=== PATIENT | female | born 1955 | race Caucasian/White ===

== ENCOUNTER 2022-07-29 14:56 | Inpatient (IN) | payer OTHER ==
--- OUTSIDE RECORDS SUMMARY | 2022-07-29 15:01 | XMS REPORT | Continuity of Care Document ---
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 MOUTH [place] 00 :00 DAILY Medical Branch MYRBETRIQ 2019-0 2021- No [id number] TAKE 1 Univers 50 mg 9-21 -22 TABLET BY ity of tablet 00:00: 00:00 MOUTH [place] 00 :00 DAILY Medical Branch Immunizations Ordered Filled Immunization Date Status Comments [facility] e Immunization Name Name Pneumococcal 20 2022-03-21 Completed Universit y of Conjugate, PCV20 00:00:00 [facility] dical (Prevnar 20) Branch Pneumococcal 20 2022-03-21 Completed Universit y of Conjugate, PCV20 00:00:00 [facility] dical (Prevnar 20) Branch Pneumococcal 20 2022-03-21 Completed Universit y of Conjugate, PCV20 00:00:00 [facility] dical (Prevnar 20) Branch Pneumococcal 20 2022-03-21 Completed Universit y of Conjugate, PCV20 00:00:00 [facility] dical (Prevnar 20) Branch Pneumococcal 20 2022-03-21 Completed Universit y of Conjugate, PCV20 00:00:00 [facility] dical (Prevnar 20) Branch Pneumococcal 20 2022-03-21 Completed Universit y of Conjugate, PCV20 00:00:00 [facility] dical (Prevnar 20) Branch Pneumococcal 20 2022-03-21 Completed Universit y of Conjugate, PCV20 00:00:00 [facility] dical (Prevnar 20) Branch Pneumococcal 20 2022-03-21 Completed Universit y of Conjugate, PCV20 00:00:00 [facility] dical (Prevnar 20) Branch Pneumococcal 20 2022-03-21 Completed Universit y of Conjugate, PCV20 00:00:00 [facility] dical (Prevnar 20) Branch Moderna COVID-19 Moderna COVID-19 2020-12-30 Completed Vaccine Vaccine 00:00:00 Moderna COVID-19 Moderna COVID-19 2020-11-11 Completed Vaccine Vaccine 00:00:00 Influenza High Dose 2020-03-23 Completed Unive rsity of Quad 00:00:00 [facility] Influenza High Dose 2020-03-23 Completed Unive rsity of Quad 00:00:00 [facility] Influenza High Dose 2020-03-23 Completed Unive rsity of Quad 00:00:00 [facility] Influenza High Dose 2020-03-23 Completed Unive rsity of Quad 00:00:00 [facility] Influenza High Dose 2020-03-23 Completed Unive rsity of Quad 00:00:00 [facility] Influenza High Dose 2020-03-23 Completed Unive rsity of Quad 00:00:00 [facility] Influenza High Dose 2020-03-23 Completed Unive rsity of Quad 00:00:00 [facility] Influenza High Dose 2020-03-23 Completed Unive rsity of Quad 00:00:00 [facility] Influenza High Dose 2020-03-23 Completed Unive rsity of Quad 00:00:00 [facility] Influenza High Dose 2020-03-23 Completed Unive rsity of Quad 00:00:00 [facility] Influenza High Dose 2020-03-23 Completed Unive rsity of Quad 00:00:00 [facility] Influenza High Dose 2020-03-23 Completed Unive rsity of Quad 00:00:00 [facility] Influenza High Dose 2020-03-23 Completed Unive rsity of Quad 00:00:00 [facility] Pneumococcal 13 2019-04-16 Completed Universit y of Conjugate, PCV13 00:00:00 [facility] dical (Prevnar 13) Branch Influenza Virus 2019-04-16 Completed Universit y of Vaccine Quad .5 mL 00:00:00 [facility] 6+ MO Branch Pneumococcal 13 2019-04-16 Completed Universit y of Conjugate, PCV13 00:00:00 [facility] dical (Prevnar 13) Branch Influenza Virus 2019-04-16 Completed Universit y of Vaccine Quad .5 mL 00:00:00 [facility] IM 6+ MO Branch Pneumococcal 13 2019-04-16 Completed Universit y of Conjugate, PCV13 00:00:00 [facility] dical (Prevnar 13) Branch Influenza Virus 2019-04-16 Completed Universit y of Vaccine Quad .5 mL 00:00:00 [facility] 6+ MO Branch Pneumococcal 13 2019-04-16 Completed Universit y of Conjugate, PCV13 00:00:00 [place] Me dical (Prevnar 13) Branch Influenza Virus 2019-04-16 Completed Universit y of Vaccine Quad .5 mL 00:00:00 [place] [facility] IM 6+ MO Branch Pneumococcal 13 2019-04-16 Completed Universit y of Conjugate, PCV13 00:00:00 [place] [facility] dical (Prevnar 13) Branch Influenza Virus 2019-04-16 Completed Universit y of Vaccine Quad .5 mL 00:00:00 [place] [facility] IM 6+ MO Branch Pneumococcal 13 2019-04-16 Completed Universit y of Conjugate, PCV13 00:00:00 [facility] dical (Prevnar 13) Branch Influenza Virus 2019-04-16 Completed Universit y of Vaccine Quad .5 mL 00:00:00 [place] [facility] IM 6+ MO Branch Pneumococcal 13 2019-04-16 Completed Universit y of Conjugate, PCV13 00:00:00 [facility] dical (Prevnar 13) Branch Influenza Virus 2019-04-16 Completed Universit y of Vaccine Quad .5 mL 00:00:00 [place] [facility] IM 6+ MO Branch Pneumococcal 13 2019-04-16 Completed Universit y of Conjugate, PCV13 00:00:00 [facility] dical (Prevnar 13) Branch Influenza Virus 2019-04-16 Completed Universit y of Vaccine Quad .5 mL 00:00:00 [place] [facility] IM 6+ MO Branch Pneumococcal 13 2019-04-16 Completed Universit y of Conjugate, PCV13 00:00:00 [facility] dical (Prevnar 13) Branch Influenza Virus 2019-04-16 Completed Universit y of Vaccine Quad .5 mL 00:00:00 [place] [facility] IM 6+ MO Branch Pneumococcal 13 2019-04-16 Completed Universit y of Conjugate, PCV13 00:00:00 [facility] dical (Prevnar 13) Branch Influenza Virus 2019-04-16 Completed Universit y of Vaccine Quad .5 mL 00:00:00 [place] [facility] IM 6+ MO Branch Pneumococcal 13 2019-04-16 Completed Universit y of Conjugate, PCV13 00:00:00 [facility] dical (Prevnar 13) Branch Influenza Virus 2019-04-16 Completed Universit y of Vaccine Quad .5 mL 00:00:00 [place] [facility] IM 6+ MO Branch Pneumococcal 13 2019-04-16 Completed Universit y of Conjugate, PCV13 00:00:00 [facility] dical (Prevnar 13) Branch Influenza Virus 2019-04-16 Completed Universit y of Vaccine Quad .5 mL 00:00:00 [facility] 6+ MO Branch Pneumococcal 13 2019-04-16 Completed Universit y of Conjugate, PCV13 00:00:00 [facility] dical (Prevnar 13) Branch Influenza Virus 2019-04-16 Completed Universit y of Vaccine Quad .5 mL 00:00:00 [facility] 6+ MO Branch Influenza Virus 2012-04-17 Completed Universit y of Vaccine 00:00:00 [facility] Influenza Virus 2012-04-17 Completed Universit y of Vaccine 00:00:00 [facility] Influenza Virus 2012-04-17 Completed Universit y of Vaccine 00:00:00 [facility] Influenza Virus 2012-04-17 Completed Universit y of Vaccine 00:00:00 [facility] Influenza Virus 2012-04-17 Completed Universit y of Vaccine 00:00:00 [facility] Influenza Virus 2012-04-17 Completed Universit y of Vaccine 00:00:00 [facility] Influenza Virus 2012-04-17 Completed Universit y of Vaccine 00:00:00 [facility] Influenza Virus 2012-04-17 Completed Universit y of Vaccine 00:00:00 [facility] Influenza Virus 2012-04-17 Completed Universit y of Vaccine 00:00:00 [facility] Influenza Virus 2012-04-17 Completed Universit y of Vaccine 00:00:00 [facility] Influenza Virus 2012-04-17 Completed Universit y of Vaccine 00:00:00 [facility] Influenza Virus 2012-04-17 Completed Universit y of Vaccine 00:00:00 [facility] Influenza Virus 2012-04-17 Completed Universit y of Vaccine 00:00:00 [facility] TDAP 2012-02-11 Completed University of 00:00:00 [facility] TDAP 2012-02-11 Completed University of 00:00:00 [facility] TDAP 2012-02-11 Completed University of 00:00:00 [facility] TDAP 2012-02-11 Completed University of 00:00:00 [facility] TDAP 2012-02-11 Completed University of 00:00:00 [facility] TDAP 2012-02-11 Completed University of 00:00:00 [facility] TDAP 2012-02-11 Completed University of 00:00:00 [facility] TDAP 2012-02-11 Completed University of 00:00:00 [facility] TDAP 2012-02-11 Completed University of 00:00:00 [facility] TDAP 2012-02-11 Completed University of 00:00:00 [facility] TDAP 2012-02-11 Completed University of 00:00:00 [facility] TDAP 2012-02-11 Completed University of 00:00:00 [facility] TDAP 2012-02-11 Completed University of 00:00:00 [facility] Vital Signs Vital Name Observation Time Observation Value Comments Source Systolic blood 2022-03-21 18:38:00 125 mm[Hg] Univer sity of pressure [facility] Diastolic blood 2022-03-21 18:38:00 81 mm[Hg] Unive rsity [facility] [place] Heart rate 2022-03-21 18:38:00 77 /min [facility] Body temperature 2022-03-21 18:38:00 36.5 Kelsey [facility] Respiratory rate 2022-03-21 18:38:00 18 /min [facility] height 2022-03-21 18:38:00 177.8 cm [facility] Body weight 2022-03-21 18:38:00 77.61 kg [facility] BMI 2022-03-21 18:38:00 24.55 kg/m2 [facility] Oxygen saturation in 2022-03-21 18:38:00 95 /min [facility] Arterial blood by [facility] Pulse oximetry Branch Procedures Procedure Date / Time Performing Clinician Source Performed PNEUMOCOCCAL 20 2022-03-21 19:07:33 Nicolas Branch [place] CONJUGATE (PREVNAR 20) [facility] ranch VACCINE ASSIGNMENT OF BENEFITS 2022-03-21 18:31:24 Doctor Unassigned, No [facility] EXTERNAL FIT DNA 2019-05-07 15:15:00 [facility] Start End Encounter Admission Attending Care Care Encounter Source Date/Time Date/Time Type Type Clinicians Facility Department ID 2022-06-05 2022-06-05 Outpatient Tg BRANCH [facility] [id number] Univers 00:00:00 00:00:[address] [facility] 2022-05-22 2022-05-22 Refill Jose Carlos, [facility] 1.2.840.114 [id number] Univers 00:00:00 00:00:00 Meryann SOUTH 350.1.13.10 it y of [facility] [place] [id number] [address] 2022-05-20 2022-05-20 Refill Jose Carlos, [facility] 1.2.840.114 [id number] Univers 00:00:00 00:00:00 Meryann [place]TH 350.1.13.10 it y of [facility] [place] [id number] [address] 2022-04-30 2022-04-30 Refill Jose Carlos, [facility] 1.2.840.114 [id number] Univers 00:00:00 00:00:00 Meryann LEAGUE 350.1.13.10 it y of [facility] [place] [phone] [place] dical AND [address] [place] [address] [facility] 2022-04-04 2022-04-04 Telephone [facility] [id number] Univers 00:00:00 00:00:00 [facility] 350.1.13.10 it y of [facility] [place] [id number] [address] 2022-04-02 2022-04-02 Refill [facility], [facility] 1.2.840.114 [id number] Univers 00:00:00 00:00:00 Mercuongn SOUTH 350.1.13.10 it y of [facility] [place] [id number] [address] 2022-03-22 2022-03-22 Order Booker Draw, Clc-Bls Lab [facility] 1.2.8 40.114 [id number] Univers 12:30:00 12:45:00 Visit Nicolas Branch [facility] 350.1 .13.10 ity of [place] 4.2.7.2.686 [place] HIGH [id number] [facility] [address] OFFICE BUILDING 2022-03-22 2022-03-22 Outpatient R JOSE CARLOS, [facility] [id number] Univers 12:30:00 12:30:00 NORMAN ity [facility] [place] 2022-03-21 2022-03-21 Outpatient R JOSE CARLOS, [facility] [id number] Univers 13:40:00 14:26:26 MERYANN ity [facility] [place] 2022-03-21 2022-03-21 Office Jose Carlos, [facility] 1.2.840.114 [id number] Univers 13:40:00 14:26:26 Visit Nicolas FORMAN 350.1.13.10 it y of [facility] [place] [id number] [facility] [address] 2022-03-21 2022-03-21 Orders Doctor DES 1.2.840.114 [id number] Univers 00:00:00 00:00:00 Only Unassigned, TERI 350.1.13.10 ity of [place] [facility] 4.2.7.2.686 Randy as [id number] [facility] 009 Branch 2022-03-18 2022-03-18 Outpatient R JOSE CARLOS, [facility] [id number] Univers 10:20:00 10:20:00 NICOLAS [facility] 2022-03-11 2022-03-11 [facility] 1.2.840.114 [id number] Univers 00:00:00 00:00:00 Nicolas FORMAN 350.1.13.10 it y of [facility] [place] [id number] [facility] [address] 2022-03-08 2022-03-08 [facility] 1.2.840.114 [id number] Univers 00:00:00 00:00:00 Nicolas MIMS 350.1.13.10 it y of [facility] [place] [id number] [facility] AND [address] [place] [address] [facility] 2022-01-24 2022-01-24 Refill Jose Carlos, [facility] 1.2.840.114 [id number] Univers 00:00:00 00:00:00 Meryann LEAGUE 350.1.13.10 it y of [facility] [place] [id number] Me dical AND [address] [facility] E CLINIC 2021-12-11 2021-12-11 Refill Jose Carlos, [facility] 1.2.840.114 [id number] Univers 00:00:00 00:00:00 Meryann LEAGUE 350.1.13.10 it y of [facility] [place].2.[place] [id number] Me dical AND [address] [facility] E CLINIC 2021-10-31 2021-10-31 [facility] 1.2.840.114 [id number] Univers 00:00:00 00:00:00 Meryann LEAGUE 350.1.13.10 it y of [facility] [place] [id number] Me dical AND [address] [facility] E CLINIC 2021-10-29 2021-10-29 Outpatient R [facility] [id number] Univers 13:00:00 13:00:[address] [facility] 2021-09-28 2021-09-28 Patient [facility] 1.2.840.114 [id number] Univers 00:00:00 00:00:00 Secure Msg Nicolas FORMAN 350.1.13.10 ity of [facility] [place] [id number] [address] 2021-09-21 2021-09-21 Outpatient [facility] [id number] Univers 13:40:00 14:49:01 NICOLAS ity [facility] [place] 2021-09-21 2021-09-21 Office [facility] 1.2.840.114 [id number] Univers 13:40:00 14:49:01 Visit Nicolas FORMAN 350.1.13.10 it y of [facility] [place].2.[place] [id number] [address] 2021-09-21 2021-09-21 Outpatient [facility] [id number] Univers 13:40:00 14:49:[address] [facility] 2021-09-11 2021-09-11 Refill [facility] 1.2.840.114 [id number] Univers 00:00:00 00:00:00 Meryann LEAGUE 350.1.13.10 it y of [facility] [place] [id number] [place] dicms AND [address] [facility] E CLINIC 2021-08-07 2021-08-07 Refill [facility] 1.2.840.114 [id number] Univers 00:00:00 00:00:00 Meryann LEAGUE 350.1.13.10 it y of [facility] [place] [id number] [facility] AND [address] [facility] E CLINIC 2021-08-06 2021-08-06 [facility]ill [facility] 1.2.840.114 [id number] Univers 00:00:00 00:00:00 Meryann LEAGUE 350.1.13.10 it y of [facility] [place].2.[place] [id number] [facility] AND [address] [facility] E CLINIC 2021-07-21 2021-07-21 Refill [facility] 1.2.840.114 [id number] Univers 00:00:00 00:00:00 Meryann SOUTH 350.1.13.10 it y of [facility] [place].2.[place] [phone] [address] 2021-07-10 2021-07-10 Refill [facility] 1.2.840.114 [id number] Univers 00:00:00 00:00:00 Meryann SOUTH 350.1.13.10 it y of [facility] [place].2.[place] [id number] [address] 2021-05-25 2021-05-25 Refill [facility] 1.2.840.114 [id number] Univers 00:00:00 00:00:00 Meryann LEAGUE 350.1.13.10 it y of [facility] 4[place]7.2.[place] [id number] Me dical AND [address] [facility] 2021-05-16 2021-05-16 Refill [facility] 1.2.840.114 [id number] Univers 00:00:00 00:00:00 Meryann LEAGUE 350.1.13.10 it y of [facility] [place]7.2.[place] [id number] [place] dical AND [address] [facility] E CLINIC 2021-05-07 2021-05-07 Refill [facility] 1.2.840.114 [id number] Univers 00:00:00 00:00:00 Meryann LEAGUE 350.1.13.10 it y of [facility] 4[place].7.2.[place] [id number] [place] dicms AND [address] [facility] E CLINIC 2021-05-06 2021-05-06 [facility] 1.2.840.114 [id number] Univers 00:00:00 00:00:00 Meryann SOUTH 350.1.13.10 it y of [facility] [place].7.2.[place] [id number] [address] 2021-05-05 2021-05-05 Refill [facility] 1.2.840.114 [id number] Univers 00:00:00 00:00:00 Meryann LEAGUE 350.1.13.10 it y of [facility] 4[place].7.2.[place] [id number] [place] dicms AND [address] [place] [address] E CLINIC 2021-04-27 2021-04-27 Radha LU [facility] [id number] Univers 09:30:00 09:30:00 ALFONSO salas [facility] [place] 2021-04-25 2021-04-25 Letter DES Castillo 1.2.840.114 [id number] Univers 00:00:00 00:00:00 (Out) Debi WILLIAMSON 350.1.13.10 it y of HOSPITAL 4.2.7.2.686 Randy as [id number] [facility] 019 Branch 2021-04-24 2021-04-24 Laboratory Only, Web Test [facility] 1.2.840. 114 [id number] Univers 16:29:43 16:44:43 Only [facility] 350.1 .13.10 ity of Specialty [place].2.[place] Care - [id number] [facility] [address] 2021-04-24 2021-04-24 Outpatient R [facility] [id number] Univers 16:30:00 16:30:00 [facility] 2021-04-24 2021-04-24 Outpatient R [facility] [id number] Univers 14:00:00 14:00:00 [facility] 2021-04-10 2021-04-10 Telephone [facility] [id number] Univers 00:00:00 00:00:00 [facility] 350.1.13.10 it y of [facility] [place].7.2.[place] [id number] [address] 2021-04-03 2021-04-03 Refill [facility] 1.2.840.114 [id number] Univers 00:00:00 00:00:00 [facility] 350.1.13.10 it y of [facility] 4.2.7.2.[place] [id number] [address] 2021-03-15 2021-03-15 Letter Testing, UNIVERSIT 1.2.840.114 [id number] Univers 00:00:00 00:00:00 (Out) [facility] HEALTH 350.1.13.10 i ty of Pulmonary CLINICS [place].7.2.[place] Function [id number] Med ical 083 Branch 2021-03-12 2021-03-12 Office [facility] 1.2.840.114 [id number] Univers 14:41:07 15:43:43 Visit Nicolas FORMAN 350.1.13.10 it y of [facility] 4.2.7.2.[place] [id number] [facility] 314 [address] 2021-03-12 2021-03-12 Outpatient R [facility] [id number] Univers 14:40:00 14:40:[address] [facility] 2021-03-12 2021-03-12 Orders Doctor DES 1.2.840.114 [id number] Univers 00:00:00 00:00:00 Only Unassigned, TERI 350.1.13.10 ity of [place] [facility] 4.2.7.2.686 Randy as [phone] [facility] 009 Branch 2021-02-24 2021-02-24 Refill [facility] 1.2.840.114 [id number] Univers 00:00:00 00:00:00 Nicolas MIMS 350.1.13.10 it y of [facility] 4[place]2.7.2.[place] [id number] Me dicms AND [address] [facility] E CLINIC 2021-02-24 2021-02-24 Refill [facility] 1.2.840.114 [id number] Univers 00:00:00 00:00:00 Meryann LEAGUE 350.1.13.10 it y of [facility] 4.2.7.2.[place] [id number] Me dical AND [address] [facility] E CLINIC 2021-02-01 2021-02-01 Refill [facility] 1.2.840.114 [id number] Univers 00:00:00 00:00:00 Meryann LEAGUE 350.1.13.10 it y of [facility] 4.2.7.2.[place] [id number] Me dical AND 313 [address] [facility] 2021-01-31 2021-01-31 Refill [facility] 1.2.840.114 [id number] Univers 00:00:00 00:00:00 Meryann LEAGUE 350.1.13.10 it y of [facility] 4[place]2.7.2.[place] [id number] Me dical AND [address] [facility] E CLINIC 2021-01-02 2021-01-02 Refill [facility] 1.2.840.114 [id number] Univers 00:00:00 00:00:00 Meryann LEAGUE 350.1.13.10 it y of [facility] 4[place]2.7.2.[place] [id number] Me dical AND [address] [facility] E CLINIC 2020-12-30 2020-12-30 Outpatient GCCOVIDV GCCOVIDV [id number] GCCOVID 00:00:00 00:00:00 V 2020-12-26 2020-12-26 Outpatient SHAHRZAD ESPARZA [facility] [id number] Univers 08:30:00 08:30:[address] [facility] 2020-11-23 2020-11-23 [facility]ill [facility] 1.2.840.114 [id number] Univers 00:00:00 00:00:00 Meryann LEAGUE 350.1.13.10 it y of [facility] 4.2.7.2.[place] [id number] [place] dicms AND [address] [place] [address] E CLINIC 2020-11-11 2020-11-11 Outpatient GCCOVIDV GCCOVIDV [id number] GCCOVID 00:00:00 00:00:00 V 2020-10-31 2020-10-31 Refill [facility] 1.2.840.114 [id number] Univers 00:00:00 00:00:00 Meryann LEAGUE 350.1.13.10 it y of [facility] 4.2.7.2.[place] [id number] Me dical AND [address] [place] [address] E CLINIC 2020-10-06 2020-10-06 [facility] 1.2.840.114 [id number] Univers 00:00:00 00:00:00 Meryann LEAGUE 350.1.13.10 it y of [facility] [place] [phone] Me dical AND [address] [place] [address] [facility] 2020-10-04 2020-10-04 Orders Doctor DES 1.2.840.114 [id number] Univers 00:00:00 00:00:00 Only Unassigned, TERI 350.1.13.10 ity of [place] [facility] 4.2.7.2.686 Randy as [phone] [place] [address] [place] 2020-10-03 2020-10-03 Telephone [facility] 1.2.252.564 [id number] Univers 00:00:00 00:00:00 Meryann LEAGUE 350.1.13.10 it y of [facility] [place] [phone] Me dical AND [address] [place] [address] [facility] 2020-09-30 2020-09-30 Refill [facility] 1.2.840.114 [id number] 87 Univers 00:00:00 00:00:00 Meryann LEAGUE 350.1.13.10 it y of [facility] [place]2.[place] 188.3217672 Me dical AND [address] [place] [address] [facility] 2020-09-28 2020-09-28 Telephone [facility] 1.2.975.919 [id number] 5174 Univers 00:00:00 00:00:00 Meryann LEAGUE 350.1.13.10 it y of [facility] [place].2.[place] 135.0540180 Me dical AND [address] [place] [address] [facility] 2020-09-26 2020-09-26 Office [facility] 1.2.840.114 [id number] 03 Univers 14:31:04 14:51:04 Visit Meryann LEAGUE 350.1.13.10 it y of [facility] [place].2.[place] 278.0428308 Me dical AND [address] [place] [address] E CLINIC 2020-09-26 2020-09-26 Outpatient R JOSE CARLOS [facility] [id number] Univers 14:20:00 14:20:[address] [facility] 2020-09-26 2020-09-26 Orders Doctor NUNES 1.2.840.114 [id number] Univers 00:00:00 00:00:00 Only Unassigned, TERI 350.1.13.10 ity of [facility] 4.2.7.2.686 Randy as [phone] [address] 2020-09-21 2020-09-21 Telephone [facility] 1.2.169.361 [id number] Univers 00:00:00 00:00:00 Nicolas MIMS 350.1.13.10 it y of [facility] [place].2.[place] [phone] [place] dicms AND [address] [place] [address] E CLINIC 2020-09-18 2020-09-18 Office [facility] 1.2.840.114 [id number] 11 Univers 13:24:37 13:44:37 Visit Nicolas DHEERAJMARY BETH 350.1.13.10 it y of [facility] 4[place].7.2.[place] [phone] [facility] AND [address] [place] [address] E CLINIC 2020-09-18 2020-09-18 Outpatient Tg BRANCH [facility] [id number] Univers 13:20:00 13:20:00 NICOLAS salas [facility] 2020-09-18 2020-09-18 Outpatient Tg ETIENNE [facility] [id number] Univers 13:00:00 13:00:00 CAM salas [facility] 2020-09-18 2020-09-18 Orders DES [place] 1.2.840.114 [id number] Univers 00:00:00 00:00:00 Only Nicolas WILLIAMSON 350.1.13.10 it y of [facility] 4.2.7.2.686 [place] [phone] [address] 2020-09-11 2020-09-11 Outpatient Tg BRANCH [facility] [id number] Univers 16:00:00 16:00:[address] of [facility] 2020-09-06 2020-09-06 Refill [facility] 1.2.840.114 [id number] Univers 00:00:00 00:00:00 Meryann LEAGUE 350.1.13.10 it y of [facility] [place].2.[place] [id number] Me dical AND [address] [facility] 2020-09-04 2020-09-04 Patient [facility] 1.2.840.114 [id number] Univers 00:00:00 00:00:00 Outreach Tio KEN 350.1.13.10 i ty of [facility] 4.2.7.2.686 Osmar ARRIAGA [phone] Me dic[address] 2020-09-01 2020-09-01 Refill [facility] 1.2.840.114 [id number] 84 Univers 00:00:00 00:00:00 Meryann LEAGUE 350.1.13.10 it y of [facility] 4[place]7.2.[place] [id number] Me dical AND [address] [facility] E CLINIC 2020-07-12 2020-07-12 Telephone [facility] 1.2.756.846 [id number] Univers 00:00:00 00:00:00 Meryann LEAGUE 350.1.13.10 it y of [facility] [place].7.2.[place] [phone] Me dical AND [address] [facility] E CLINIC 2020-07-12 2020-07-12 Refill [facility] 1.2.840.114 [id number] Univers 00:00:00 00:00:00 Meryann LEAGUE 350.1.13.10 it y of [facility] 4[place].7.2.[place] 576.6606110 Me dical AND [address] [facility] E CLINIC 2020-07-07 2020-07-07 Refill [facility] 1.2.840.114 [id number] 86 Univers 00:00:00 00:00:00 Meryann LEAGUE 350.1.13.10 it y of [facility] 4[place]2.7.2.[place] 621.5757386 Me dical AND [address] [place] [address] E CLINIC 2020-06-18 2020-06-18 Refill [facility] 1.2.840.114 [id number] 73 Univers 00:00:00 00:00:00 Meryann LEAGUE 350.1.13.10 it y of [facility] 4[place]2.7.2.[place] 430.7078458 Me dical AND [address] [place] [address] E CLINIC 2020-06-16 2020-06-16 Refill [facility] 1.2.840.114 [id number] 00 Univers 00:00:00 00:00:00 Meryann LEAGUE 350.1.13.10 it y of [facility] 4[place]2.7.2.[place] 372.1510078 Me dical AND [address] [place] [address] E CLINIC 2020-06-05 2020-06-05 Refill [facility] 1.2.840.114 [id number] 84 Univers 00:00:00 00:00:00 Meryann LEAGUE 350.1.13.10 it y of [facility] 4.2.7.2.[place] 660.1685511 Me dical AND [address] [place] [address] E CLINIC 2020-04-04 2020-04-04 Refill [facility] 1.2.840.114 [id number] 03 Univers 00:00:00 00:00:00 Meryann LEAGUE 350.1.13.10 it y of [facility] 4.2.7.2.[place] [phone] Me dical AND [address] [place] [address] [facility] 2020-03-30 2020-03-30 Outpatient R [facility] [id number] Univers 10:40:00 10:40:[address] [facility] 2020-03-23 2020-03-23 Office [facility] 1.2.840.114 [id number] Univers 12:45:08 13:05:08 Visit Mercuongn LEAGUE 350.1.13.10 it y of [facility] 4.2.7.2.[place] 128.7100239 Me dical AND [address] [facility] E CLINIC 2020-03-23 2020-03-23 Outpatient R JOSE CARLOS [facility] [id number] Univers 13:00:00 13:00:[address] of [facility] 2020-03-23 2020-03-23 Refill [facility] 1.2.840.114 [id number] Univers 00:00:00 00:00:00 Meryann LEAGUE 350.1.13.10 it y of [facility] 4[place]2.7.2.[place] 205.6224827 Me dical AND [address] [facility] E CLINIC 2020-03-13 2020-03-13 Refill [facility] 1.2.840.114 [id number] Univers 00:00:00 00:00:00 Meryann LEAGUE 350.1.13.10 it y of [facility] 4.2.7.2.[place] [phone] Me dical AND [address] [facility] E CLINIC 2020-03-08 2020-03-08 Refill [facility] 1.2.840.114 [id number] 35 Univers 00:00:00 00:00:00 Meryann LEAGUE 350.1.13.10 it y of [facility] 4[place]2.7.2.[place] 496.3999537 Me dical AND [address] [place] [address] E CLINIC 2020-02-28 2020-02-28 [facility] 1.2.840.114 [id number] 54 Univers 00:00:00 00:00:00 Meryann LEAGUE 350.1.13.10 it y of [facility] 4[place]2.7.2.[place] 223.7974913 Me dical AND [address] [place] [address] E CLINIC 2020-02-03 2020-02-03 [facility] 1.2.840.114 [id number] 91 Univers 00:00:00 00:00:00 Meryann LEAGUE 350.1.13.10 it y of [facility] 4.[place].7.2.[place] 533.0690886 Me dical AND [address] [facility] 2020-01-31 2020-01-31 Refill Jose Carlos, [facility] 1.2.840.114 [id number] 18 Univers 00:00:00 00:00:00 Mercuongn LEAGUE 350.1.13.10 it y of [facility] 4[place]2.7.2.[place] 424.7604816 Me dical AND [address] [facility] E CLINIC 2020-01-27 2020-01-27 Refill Jose Carlos, [facility] 1.2.840.114 [id number] 13 Univers 00:00:00 00:00:00 Meryann LEAGUE 350.1.13.10 it y of [facility] 4.2.7.2.[place] 548.2271196 Me dical AND [address] [facility] 2020-01-04 2020-01-04 Refill [place], [facility] 1.2.028.839 [id number] 1835 Univers 00:00:00 00:00:00 Arely Garcia LEAGUE 350.1.13.10 ity of [facility] [place] [id number] Me dical AND [address] [facility] 2019-12-29 2019-12-29 Refill Jose Carlos, [facility] 1.2.840.114 [id number] Univers 00:00:00 00:00:00 Mercuongn LEAGUE 350.1.13.10 it y of [facility] 4[place]2.7.2.[place] 178.5670212 Me dical AND [address] [facility] 2019-12-23 2019-12-23 Refill Jose Carlos, [facility] 1.2.840.114 [id number] 64 Univers 00:00:00 00:00:00 Meryann LEAGUE 350.1.13.10 it y of [facility] 4.2.7.2.[place] 795.7102446 Me dical AND [address] [facility] 2019-12-10 2019-12-10 Refill [place], [facility] 1.2.407.628 [id number] Univers 00:00:00 00:00:00 Arely Garcia LEAGUE 350.1.13.10 ity of [facility] [place] [phone] Me dical AND [address] [facility] E CLINIC 2019-11-13 2019-11-13 Refill Jose Carlos, [facility] 1.2.840.114 [id number] 11 Univers 00:00:00 00:00:00 Meryann LEAGUE 350.1.13.10 it y of [facility] 4[place]2.7.2.[place] 102.5518357 Me dical AND [address] [facility] E CLINIC 2019-11-13 2019-11-13 [facility] 1.2.664.026 [id number] 0224 Univers 00:00:00 00:00:00 Arely Garcia LEAGUE 350.1.13.10 ity of [facility] [place] 177.1616833 Me dical AND [address] [facility] E CLINIC 2019-11-09 2019-11-09 [facility] 1.2.526.366 [id number] 7158 Univers 00:00:00 00:00:00 Arely Garcia LEAGUE 350.1.13.10 ity of [facility] [place] [phone] Me dical AND [address] [place] [address] E CLINIC 2019-10-28 2019-10-28 Outpatient R JOSE CARLOS, [facility] [id number] Univers 13:00:00 13:00:[address] [facility] 2019-10-28 2019-10-28 Refill Jose Carlos, [facility] 1.2.840.114 [id number] Univers 00:00:00 00:00:00 Meryann LEAGUE 350.1.13.10 it y of [facility] 4[place]2.7.2.[place] 099.9951709 Me dical AND [address] [place] [address] E CLINIC 2019-10-16 2019-10-16 Refill Jose Carlos, [facility] 1.2.840.114 [id number] 25 Univers 00:00:00 00:00:00 Meryann LEAGUE 350.1.13.10 it y of [facility] 4.2.7.2.[place] 787.6411023 Me dical AND [address] [place] [address] E CLINIC 2019-10-08 2019-10-08 Telephone [facility] 1.2.668.852 [id number] Univers 00:00:00 00:00:00 Nicolas MIMS 350.1.13.10 it y of [facility] 4.2.7.2.[place] 341.3436572 Me dical AND [address] [place] [address] E CLINIC 2019-09-28 2019-09-28 [facility] [id number] Univers 14:00:00 14:00:00 NICOLAS salas [facility] 2019-09-15 2019-09-24 Office [facility] 1.2.840.114 [id number] Univers 14:57:04 10:15:18 Visit Nicolas MIMS 350.1.13.10 it y of [facility] 4.2.7.2.[place] 169.7814147 Me dicms AND [address] [place] [address] E CLINIC 2019-09-23 2019-09-23 Outpatient R JOSE CARLOS [facility] [id number] Univers 13:20:00 13:20:00 NICOLAS salas [facility] 2019-09-23 2019-09-23 TelemedicTanmay Higgins [facility] 1.2.840.114 [id number] Univers 08:09:08 08:29:08 ne Visit Nicolas [place] [facility] 35 0.1.13.10 ity of [facility] 4.2.7.2.686 [facility] AT [phone] Me dical [address] 2019-09-22 2019-09-22 Telephone [facility] 1.2.267.888 [id number] Univers 00:00:00 00:00:00 Nicolas MIMS 350.1.13.10 it y of [facility] 4[place]2.7.2.[place] 618.4301961 Me dical AND [address] [place] [address] E CLINIC 2019-09-21 2019-09-21 Refill [facility] 1.2.840.114 [id number] Univers 00:00:00 00:00:00 Meryann LEAGUE 350.1.13.10 it y of [facility] 4.2.7.2.[place] 628.3394174 Me dical AND [address] [facility] 2019-09-19 2019-09-19 [facility] 1.2.840.114 [id number] Univers 00:00:00 00:00:00 Meryann LEAGUE 350.1.13.10 it y of [facility] 4.2.7.2.[place] 639.0056835 [place] dical AND [address] [facility] E CLINIC 2019-09-15 2019-09-15 Outpatient R JOSE CARLOS [facility] [id number] Univers 15:00:00 15:00:[address] of [facility] 2019-09-08 2019-09-08 [facility] 1.2.840.114 [id number] Univers 00:00:00 00:00:00 Meryann LEAGUE 350.1.13.10 it y of [facility] 4.2.7.2.[place] 417.8474041 [place] dical AND [address] [facility] E CLINIC 2019-09-07 2019-09-07 RefZenia Tamayo [facility] 1.2.840.114 [id number] Univers 00:00:00 00:00:00 Rachel MULTISPEC 350.1.13.10 ity of [place] 4.2.7.2.686 [facility] 138.5839245 [facility] AND [place] [address] [facility] 2019-09-04 2019-09-04 [facility] 1.2.840.114 [id number] Univers 00:00:00 00:00:00 Meryann LEAGUE 350.1.13.10 it y of [facility] 4.2.7.2.[place] 719.8183023 Me dical AND [address] [facility] 2019-07-20 2019-07-20 Izaiah Barry [facility] 1.2.995.458 [id number] Univers 00:00:00 00:00:00 Arely Garcia LEAGUE 350.1.13.10 ity of [facility] 4.2.7.2.[place] 952.4734935 [place] dical AND [address] [facility] E CLINIC 2019-07-20 2019-07-20 JOIE Rivera 1.2.840.114 [id number] 43 Univers 00:00:00 00:00:00 Nicolas MIMS 350.1.13.10 it y of [facility] 4[place].7.2.[place] 392.6344037 Me dical AND [address] [facility] E CLINIC Results Test Description Test Time Test Comments Results Result Comments Source EXTERNAL FIT DNA 2022-03-21 19:19:00 Test Item Value Reference Range Interpretation Comme nts Lab Interpretation (test code = 82369-3) [facility] [id number] 19:19:00 Test Item Value Reference Range Interpretation Comments Lab Interpretation (test code = Abnormal 36558-2) [facility] C-SPINE W/O [id number] 16:50:00 Name: PATRICIA BECERRA [facility] : 1955 Age/S: 62 / F [address] [place] [address] Unit #: [id number] Loc: [place] [address] Phys: Edison Palmer DO Acct: [id number] Dis Date: Status: REG ER PHONE #: [phone] Exam Date: 07/25/2018 1639 FAX #: [phone] Reason: NECK PAIN EXAMS: CPT CODE: [id number] CT C-SPINE W/O CONT 38707 Procedure: CT Cervical Spine. Clinical Indication: Neckpain post fall from standing. Comparison: None. Technique: Multi-detector CT imaging of the cervical spine is performed. Coronal and sagittal reconstructions were obtained. CT imaging performed at this location utilizes radiation dose optimization techniques which include one or more of the following: -Automated exposure control -Adjustment of the mA and/or kV according to patient size -Use of iterative reconstruction technique CT Radiation Dose DLP 234 mGy-cm FINDINGS: ALIGNMENT AND GENERAL ASSESSMENT: There is normal alignment of the cervical spine. There are no fractures or subluxations. 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 The atlanto-dental alignment appears unremarkable. The posterior elements and spinous processes are unremarkable. The facet joint, spinolaminar and spinous process alignment are normal. There is apparent bony spinal fusion at C5-6. The patient has had previous ACDF from C4 through C7 utilizing an anterior metallic plate and screws. DISK SPACES AND SOFT TISSUES: The prevertebral soft tissues are normal. There is minimal degenerative change at all levels including marginal osteophyte formation and facet joint hypertrophy. No prevertebral soft tissue swelling is identified. VISUALIZED LUNG APICES: There is scarring in the apices. IMPRESSION: 1. No fractures or subluxations of the cervical spine. 2. Postoperative and degenerative change. SL: K56-H PAGE 1 Signed Report (CONTINUED) Name: PATRICIA BECERRA [facility] : 1955 Age/S: 62 / F [address] [place] [address] Unit #: [id number] Loc: [place] [address] Phys: Edison Palmer DO Acct: [id number] Dis Date: Status: REG ER PHONE #: [phone] Exam Date: 07/25/2018 1639 FAX #: [phone] Reason: NECK PAIN EXAMS: CPT CODE: [id number] CT C-SPINE W/O CONT 45941 (Continued) at 1650 Reported and signed by: Armando Romero M.D. CC:Edison Palmer DO Technologist:RT Krista(R) CTDI: DLP: Trnscb Date/Time: 07/25/2018 (165) Rodrigo Orig Print D/T: S: 07/25/2018 (1653) CTDI: DLP: PAGE 2 Signed Report- CT HEAD/BRAIN W/O [id number] 16:47:00 Name: PATRICIA BECERRA [facility] : 1955 Age/S: 62 / F [address] [place] [address] Unit #: [id number] Loc: [place] [address] Phys: Edison Palmer DO Acct: [id number] Dis Date: Status:REG ER PHONE #: [phone] Exam Date: 07/25/2018 1638 FAX #: [phone] Reason: HEADACHE EXAMS:CPT CODE: [id number] CT HEAD/BRAIN W/O CONT 20054 CT head without contrast 07/25/2018 HISTORY: Headache PROCEDURE: Multiple axial images from the skull base to the skull vertex were obtained without contrast. Coronal and sagittal reconstructed images were performed. DLP: 419.7 No prior exams are available for comparison FINDINGS: No acute hemorrhage, midline shift, extra-axial fluid collection, hydrocephalus, or mass lesion is present. No cortical hypodensity to suggest an acute infarct is present. Etienne-white differentiation is within normal limits. The visualized mastoid air cells are clear. Thereis no air-fluid level in the visualized paranasal sinuses. Mild distal internal carotid arterial calcifications are present. IMPRESSION: No acute intracranial abnormality. SL: BM-H at 1647 Reported and signed by: Michael Zhou M.D. CC: Edison Palmer DO Technologist:RT Krista(R) CTDI: DLP: Trnscb Date/Time: 07/25/2018 (1646) [email or web address] Orig Print D/T: S: 07/25/2018 (1640) CTDI: DLP: PAGE 1 Signed Report- XR RIBS UNI 2 V [id number] 16:38:00 FAX: Edison Puri DO [phone] [place]: St: REG Name: PATRICIA BECERRA [facility] : 1955 Age/S:62/F [address] [place] [address] Unit #: [id number] Loc: [place] [address] Phys: Edison Palmer DOAcct: [id number] Dis Date: Status: REG ER PHONE #: [phone] Exam Date: 07/25/2018 1627 FAX #: [phone] Reason: fall right rib tenderness EXAMS: CPT CODE: [id number] XR RIBS UNI 2 [place] [address] Procedure: Right Rib Series. Clinical Indication: Right rib pain post fall. Comparison: None. FINDINGS: The AP and oblique views of the right ribs, 4 views, show no definite rib fractures. The costovertebral junctions are unremarkable. There are no associated pleural effusions or pneumothorax. There areno underlying pulmonary contusions noted. IMPRESSION: 1. Unremarkable exam. SL: K56-H at 6346 Reported and signed by: Armando Romero M.D. CC: Edison Palmer DO Technologist: VENKAT Hillman RT(R); Betty Boyd RT(R) Trnsaint elizabeth edgewood Date/Time/By: 07/25/2018 (1250) : By: DatTDO Orig Print D/T: S: 07/25/2018 (8239) PAGE 1 Signed Report- XR FEMUR MIN 2 VWS [id number] 16:28:00 FAX: Edison uPri DO [phone] [place]: St: REG Name: MARIAMPATRICIA [facility] : 1955 Age/S: 62/F [address] [place] [address] Unit #: [id number] Loc: [place] [address] Phys: Juan Palmerry DOAcct: [id number] Dis Date: Status: REG ER PHONE #: [phone] Exam Date: 07/25/2018 1618 FAX #: Reason: THIGH PAIN EXAMS: CPT CODE: [id number] X[place]EMUR MIN [address] [place] [address] Right knee 2 views Right femur 2 views 07/25/2018 HISTORY: Right knee pain and right femur pain after fall FINDINGS:In the right knee, small joint effusion is present. Demineralization is noted. No acute fracture is present. No aggressive lesion is present. Right lateral plate is noted with multiple stabilization screws. No hardware loosening is identified. In the right femur, no fracture is present. No aggressive lesion is present. Distal right femoral plate and screws are again noted. IMPRESSION: 1. No fracture or dislocation involving right knee. 2. No fracture evolving right femur. 3. Small joint effusion. 4.Previous fracture repair of distal right femur SL: -H at 9048 Reported and signed by: Michael Zhou M.D. CC: Edison Palmer DO Technologist: VENKAT Hillman RT(R); Betty Boyd RT(R) Trnmard Date/Time/By: 07/25/2018(3720) : By: [email or web address] Orig Print D/T: S: 07/25/2018 (4134) PAGE 1 Signed Report- XR KNEE 1 OR 2 V [id number] 16:28:00 FAX: Edison Puri DO [phone] [place]: St: REG Name: MARIAMPATRICIA [facility] : 1955 Age/S:62/F [address] [place] [address] Unit #: [id number] Loc: [place] [address] Phys: Edison Palmer DOAcct: [id number] Dis Date: Status: REG ER PHONE #: [phone] Exam Date: 07/25/2018 1611 FAX #: Reason: KNEE PAIN EXAMS: CPT CODE: [id number] XR KNEE 1 OR 2 [place] [address] Right knee 2 views Right femur 2 views 07/25/2018 HISTORY: Right knee pain and right femur pain after fall FINDINGS: Inthe right knee, small joint effusion is present. Demineralization is noted. No acute fracture is present. No aggressive lesion is present. Right lateral plate is noted with multiple stabilization screws. No hardware loosening is identified. In the right femur, no fracture is present. No aggressive lesion is present. Distal right femoral plate and screws are again noted. IMPRESSION: 1. No fracture or dislocation involving right knee. 2. No fracture evolving right femur. 3. Small joint effusion. 4. Previous fracture repair of distal right femur SL: BM-H at 1628 Reported and signed by: Michael Zhou M.D. CC: Edison Palmer DO Technologist: VENKAT Hillman RT(R); Betty Boyd RT(R) Trnmard Date/Time/By: 07/25/2018 (8806) : By: [email or web address] Orig Print D/T: S: 07/25/2018 (4985) PAGE 1 Signed Report
[2022-07-29] MEDS ORDERED: NA CHLORIDE 0.9% 1,000 ML ONE (16:40)
[2022-07-29 16:52] LABS: Absolute Lymphocytes (CBC) 1.6 K/uL (0.7-4.9); Lymphocytes % 22.4 % (15.3-44.8); MPV 7.4 fL (7.6-11.3); RBC Red Blood Cell Count 2.38 M/uL (3.86-4.86)
[2022-07-29 17:10] LABS: Albumin 3.6 g/dL (3.4-5.0); Bilirubin Total 0.3 mg/dL (0.2-1.0); Troponin High Sensitivity 4.1 pg/mL (<58.9)
[2022-07-29] MEDS ORDERED: PANTOPRAZOLE 40 MG INJ ONE ×2 (17:33→17:34)
[2022-07-29] MEDS ORDERED: NA CHLORIDE 0.9% 250 ML ONE (17:34)
[2022-07-29 17:56] LABS: Protime INR 1.06
--- NOTE | 2022-07-29 18:11 | RAD REPORT ---
EXAM DESCRIPTION: CT - Chest For Pe Angio - 07/29/2022 6:03 pm CLINICAL HISTORY: syncope, chest pain COMPARISON: No comparisons TECHNIQUE: Dynamically enhanced axial 3 mm thick images of the chest were obtained during administra tion of <100> mL Isovue 370 IV contrast. Coronal and oblique reconstruction images were generated and reviewed. Exam utilizes a protocol for optimal evaluation of pulmonary arterial tree. Maximum intensity projections 3D imaging was utilized All CT scans are performed using dose optimization technique as appropriate and may include automated exposure control or mA/KV adjustment according to patient size. FINDINGS: Chest Wall: No suspicious thyroid nodules or pathologic lymphadenopathy. Bilateral calcifi ed breast prostheses. Lungs: No acute abnormality. Pleura: No significant effusions or pneumothorax. Mediastinum/lai: No pathologic lymphadenopathy. Moderate hiatal hernia. Pulmonary arteries/Aorta: No filling defect identified. No aortic aneurysm. Heart: No significant pericardial effusion. Normal heart size. Upper abdomen: No acute abnormality. Bones: No acute abnormality. ACDF in the cervical spine . Mild deformity at the sternum may be from a remote sternal fracture. . IMPRESSION: Negative for pulmonary embolism. No acute findings within the chest.
--- NOTE | 2022-07-29 18:13 | RAD REPORT ---
EXAM DESCRIPTION: CTAbdomen Pelvis W Contrast - 07/29/2022 6:03 pm CLINICAL HISTORY: black stools, weakness COMPARISON: No comparisons TECHNIQUE: CT of the abdomen and pelvis was performed. All CT scans are performed using dose optimization technique as appropriate and may include automated exposure control or mA/KV adjustment according to patient size. FINDINGS: Lower chest: Moderate hiatal hernia. Liver: No acute abnormality or suspicious lesions. Biliary: No biliary ductal dilatation. Stomach: No significant focal abnormality. Duodenum: No significant focal abnormality. Pancreas: No significant abnormality. Spleen: No significant abnormality. Adrenal: No suspicious lesions. Kidney/ureter: No hydronephrosis. No renal calculi. Retroperitoneum: No retroperitoneal adenopathy. Vascular: No aneurysm. Bowel: Diverticulosis without evidence of acute diverticulitis.. Normal appendix . Peritoneum: No ascites or free air. Small fat containing umbilical hernia. Bladder: Grossly unremarkable. Reproductive: No adnexal masses. Bones: No acute fracture. Other: n/a IMPRESSION: No acute intra-abdominal or pelvic finding. Normal appendix.
--- NOTE | 2022-07-29 18:41 | EDPHYS ---
Physician Documentation [facility] Name: Taylor Zaragoza Age: 66 yrs Sex: Female : 1955 Arrival Date: 07/29/2022 Time: 14:57 Bed 24 Private MD: ED Physician Noé Caballero HPI: 07/29 15:09 This 66 yrs old Female presents to ER via Ambulatory with complaints of Black/Tarry jmm Stools, Vomiting, Weakness, Near Syncope, Shortness Of Breath. 15:09 The patient presents to the emergency department with rectal bleeding, dark red blood jmm with bowel movement melena. Onset: The symptoms/episode began/occurred gradually, 3 week(s) ago. Abdominal pain: none is appreciated. Modifying factors: The symptoms are alleviated by nothing, the symptoms are aggravated by nothing. Is a 66-year-old female with history of anxiety, chronic pain, GERD, hyperlipidemia the presents emerged part with complaints of dark stools ongoing for the past 3 weeks. Patient does take oral iron daily along with oral Protonix. Did not take her medication today. Over the past few days patient has had 2 episodes of syncope.. Historical: - Allergies: 15:05 Ibuprofen; jh5 - PMHx: 15:05 Anxiety; Chronic pain; GERD; Hypercholesterolemia; jh5 - Immunization history:: Adult Immunizations up to date. - Social history:: Smoking status: Patient reports the use of cigarette tobacco products, smokes one-half pack cigarettes per day. ROS: 15:09 Cardiovascular: Negative for chest pain, palpitations, and edema, Respiratory: Negative jmm for shortness of breath, cough, wheezing, and pleuritic chest pain. 15:09 Constitutional: Positive for fatigue. 15:09 Abdomen/GI: Positive for nausea, vomiting, black/tarry stool. 15:09 Neuro: Positive for syncope. 15:09 All other systems are negative. Exam: 15:09 Constitutional: This is a well developed, well nourished patient who is awake, alert, jmm and in no acute distress. Head/Face: atraumatic. Eyes: EOMI, no conjunctival erythema appreciated ENT: Moist Mucus Membranes Neck: Trachea midline, Supple Chest/axilla: Normal chest wall appearance and motion. Cardiovascular: Regular rate and rhythm. No edema appreciated Respiratory: Normal respirations, no respiratory distress appreciated 15:09 Back: Normal ROM Skin: General appearance color normal MS/ Extremity: Moves all extremities, no obvious deformities appreciated, no edema noted to the lower extremities Neuro: Awake and alert Psych: Behavior is normal, Mood is normal, Patient is cooperative and pleasant 15:09 Abdomen/GI: Inspection: abdomen appears normal, Bowel sounds: normal, Palpation: abdomen is soft and non-tender, in all quadrants, Rectal exam: Stool: black. 18:58 ECG was reviewed by the Attending Physician. [facility] Vital Signs: 15:01 BP 127 / 70; Pulse 81; Resp 18; Temp 97.8; Pulse Ox 100% ; Weight 72.57 kg; Height 5 [facility] ft. 10 in. (177.80 cm); Pain 8/10; 17:11 BP 113 / 60; Pulse 77; Resp 15; Pulse Ox 95% on R/A; ld1 18:28 BP 94 / 82; Pulse 85; Resp 18; Pulse Ox 97% on R/A; ld1 19:00 BP 106 / 59; Pulse 77; Resp 17 S; Pulse Ox 95% on R/A; aa9 19:45 BP 104 / 60; Pulse 80; Resp 19 S; Pulse Ox 98% on R/A; aa9 20:30 BP 101 / 65; Pulse 72; Resp 18 S; Pulse Ox 97% on R/A; aa9 15:01 Body Mass Index 22.96 (72.57 kg, 177.80 cm) [facility] MDM: 15:09 Patient medically screened. [facility] 18:39 Data reviewed: vital signs, nurses notes. Consideration of Admission/Observation [facility] Patient was admitted/placed on observation. Management of patient was discussed with the following: Hospitalist: Leonel Estes. I considered the following discharge prescriptions or medication management in the emergency department Medications were administered in the Emergency Department. See MAR. Historians other than the Patient: Spouse/Significant Other: Spouse. Counseling: I had a detailed discussion with the patient and/or guardian regarding: the historical points, exam findings, and any diagnostic results supporting the discharge/admit diagnosis, lab results, radiology results, the need for outpatient follow up, the need for further work-up and treatment in the hospital. 07/29 15: Order name: CBC with Diff; Complete Time: 09:04 [facility] 07/29 15: Order name: CMP; Complete Time: 17:37 [facility] 07/29 15:09 Order name: Lipase; Complete Time: 17:37 [facility] 07/29 15:09 Order name: Type And Screen [facility] 07/29 15:10 Order name: PT-INR; Complete Time: 18:10 [facility] 07/29 15:10 Order name: Troponin High Sensitivity; Complete Time: 17:37 [facility] 07/29 17:03 Order name: Bb Add On 07/29 18:11 Order name: Packed RBC Leukored [facility] 07/29 18:24 Order name: ABO/RH no charge; Complete Time: 18:25 [facility] 07/29 18:30 Order name: SARS RAPID; Complete Time: 19:16 [facility] 07/29 18:30 Order name: SARS-COV-2 Antigen Rapid 07/29 21:40 Order name: CBC Smear Scan; Complete Time: 09:04 [facility] 07/30 04:32 Order name: CBC with Automated Diff; Complete Time: 09:04 [facility] 07/29 15:09 Order name: IV Saline Lock; Complete Time: 16:46 [facility] 07/29 15:09 Order name: Labs collected and sent; Complete Time: 16:46 [facility] 07/29 15:10 Order name: CT Chest For PE Angio; Complete Time: 18:12 [facility] 07/29 15:10 Order name: CT Abd/Pelvis - IV Contrast Only; Complete Time: 18:16 [facility] 07/29 15:10 Order name: EKG - Nurse/Tech; Complete Time: 17:00 [facility] 07/30 04:56 Order name: Basic Metabolic Panel; Complete Time: 09:04 [facility] 07/30 14:31 Order name: Hemoglobin; Complete Time: 14:44 [facility] 07/30 14:31 Order name: Hematocrit; Complete Time: 14:44 EDMS EC:52 Rate is 73 beats/min. Rhythm is regular. QRS Gilbert is Normal. TX interval is normal. QRS jmm interval is normal. QT interval is normal. No Q waves. T waves are Normal. No ST changes noted. Reviewed by me. Administered Medications: 16:44 Drug: NS 0.9% 1000 ml Route: IV; Rate: 1 bolus; Site: right antecubital; db 17:35 Drug: ProTONIX (pantoprazole) 80 mg Route: IVP; Site: right antecubital; ld1 17:37 Drug: ProTONIX (pantoprazole) 8 mg/hr Route: IV; Rate: 25 ml/hr; Site: right ld1 antecubital; Disposition: 07/30 18:11 Co-signature as Attending Physician, Noé Caballero MD I reviewed the patient's care rn provided by the Advanced Practice Provider and agree with the diagnosis and treatment plan. Disposition Summary: 07/29/22 18:40 Hospitalization Ordered Hospitalization Status: Inpatient Admission [facility] Provider: Skyler Wick Condition: Stable jmm Problem: new jmm Symptoms: are unchanged jmm Bed/Room Type: Standard [facility] Location: Intensive Care Unit(07/30/22 13:08) bd Room Assignment: 2-(07/30/22 13:08) bd Diagnosis - GI Bleed/ Gastrointestinal hemorrhage, unspecified jmm - Anemia, unspecified jmm Forms: - Medication Reconciliation Form jmm - SBAR form jmm Signatures: Dispatcher [employer] EDMS Yocasta Barrios Diana RN RN Joey Greene PA PA [facility] Noé Caballero MD MD rn Dibbern, Lauren, RN RN ld1 Karma Morgan RN RN jh5 Lis Segal RN RN db Corrections: (The following items were deleted from the chart) 07/29 19:08 18:40 Telemetry/MedSurg (Inpatient) [facility] dw 19: 18:40 [facility] dw 07/30 13:08 07/29 19:08 [facility] ER HOLD dw bd 07/30 13:08 07/29 19:08 ERHOLD- dw bd
--- NOTE | 2022-07-29 18:41 | ER ---
Nurse's Notes [facility] Name: Taylor Zaragoza Age: 66 yrs Sex: Female : 1955 Arrival Date: 07/29/2022 Time: 14:57 Bed 24 Private MD: Diagnosis: GI Bleed/ Gastrointestinal hemorrhage, unspecified;Anemia, unspecified Presentation: 07/29 15:01 Chief complaint: Patient states: pooping all black, like coffe grounds 4x in 3 weeks [facility] and now I am vomiting coffee grounds too. I get a stabbing feeling in my chest, and I am having fainting spells, and SOB. Coronavirus screen: Vaccine status: Patient reports receiving the 2nd dose of the covid vaccine. Client denies travel out of the [place] in the last 14 days. Ebola Screen: Patient negative for fever greater than or equal to 101.5 degrees Fahrenheit, and additional compatible Ebola Virus Disease symptoms Patient denies exposure to infectious person. Patient denies travel to an Ebola-affected area in the 21 days before illness onset. Initial Sepsis Screen: Does the patient meet any 2 criteria? No. Patient's initial sepsis screen is negative. Does the patient have a suspected source of infection? No. Patient's initial sepsis screen is negative. Risk Assessment: Do you want to hurt yourself or someone else? Patient reports no desire to harm self or others. Onset of symptoms was June 2022. 15:01 Method Of Arrival: Ambulatory [facility] 15:01 Acuity: DAVID 3 [facility] Triage Assessment: 15:05 General: Appears uncomfortable, slender, Behavior is calm, cooperative, appropriate for [facility] age. Pain: Complains of pain in chest and abdomen. GI: Reports lower abdominal pain, upper abdominal pain, bloody stool, indigestion, nausea, vomiting. Historical: - Allergies: 15:05 Ibuprofen; 5 - PMHx: 15:05 Anxiety; Chronic pain; GERD; Hypercholesterolemia; [facility] - Immunization history:: Adult Immunizations up to date. - Social history:: Smoking status: Patient reports the use of cigarette tobacco products, smokes one-half pack cigarettes per day. Screenin:02 [facility] ED Fall Risk Assessment (Adult) History of falling in the last 3 months, db including since admission No falls in past 3 months (0 pts) Confusion or Disorientation No (0 pts) Intoxicated or Sedated No (0 pts) Impaired Gait No (0 pts) Mobility Assist Device Used No (0 pt) Altered Elimination No (0 pt) Score/Fall Risk Level 0 - 2 = Low Risk Oriented to surroundings, Maintained a safe environment. Abuse screen: Denies threats or abuse. Denies injuries from another. Nutritional screening: No deficits noted. Tuberculosis screening: No symptoms or risk factors identified. Assessment: 17:48 Reassessment: Patient appears in no apparent distress at this time. Patient and/or db family updated on plan of care and expected duration. Pain level reassessed. Patient is alert, oriented x 3, equal unlabored respirations, skin warm/dry/pink. nausea and vomiting and tarry stools. General: Appears in no apparent distress. comfortable, Behavior is calm, cooperative. GI: Abdomen is flat, Reports lower abdominal pain, bloody stool, nausea, vomiting. 18:02 Reassessment: patient in CT. db 18:10 Reassessment: Patient appears in no apparent distress at this time. Patient and/or db family updated on plan of care and expected duration. Pain level reassessed. Patient is alert, oriented x 3, equal unlabored respirations, skin warm/dry/pink. patient returned to room from CT. 19:15 Reassessment: Patient appears in no apparent distress at this time. Patient and/or aa9 family updated on plan of care and expected duration. Pain level reassessed. Patient is alert, oriented x 3, equal unlabored respirations, skin warm/dry/pink. 19:15 Pain: Complains of pain in abdomen. Respiratory: Airway is patent Respiratory effort is aa9 even, unlabored. GI: Abdomen is flat, Reports bloody stool, nausea, vomiting. Derm: Skin is intact, is healthy with good turgor. Vital Signs: 15:01 BP 127 / 70; Pulse 81; Resp 18; Temp 97.8; Pulse Ox 100% ; Weight 72.57 kg; Height 5 jh5 ft. 10 in. (177.80 cm); Pain 8/10; 17:11 BP 113 / 60; Pulse 77; Resp 15; Pulse Ox 95% on R/A; ld1 18:28 BP 94 / 82; Pulse 85; Resp 18; Pulse Ox 97% on R/A; ld1 19:00 BP 106 / 59; Pulse 77; Resp 17 S; Pulse Ox 95% on R/A; aa9 19:45 BP 104 / 60; Pulse 80; Resp 19 S; Pulse Ox 98% on R/A; aa9 20:30 BP 101 / 65; Pulse 72; Resp 18 S; Pulse Ox 97% on R/A; aa9 15:01 Body Mass Index 22.96 (72.57 kg, 177.80 cm) [facility] ED Course: 14:57 Patient arrived in ED. as 15:03 Joey Hall PA is PHCP. [facility] 15:03 Noé Caballero MD is Attending Physician. [facility] 15:05 Triage completed. [facility] 15:05 Arm band placed on right wrist. [facility] 16:30 Lis Segal RN is Primary Nurse. db 16:46 T\T\S collected, blood band applied to patient. Inserted saline lock: 20 gauge in right jl7 antecubital area, using aseptic technique. Blood collected. 17:00 Patient has correct armband on for positive identification. Bed in low position. Side db rails up X 1. Client placed on continuous cardiac and pulse oximetry monitoring. NIBP monitoring applied. Warm blanket given. 17:00 Lab(s) recollected, by me, sent to lab. T\T\S collected, blood band applied to patient. jl7 18:04 CT Chest For PE Angio In Process Unspecified. EDMS 18:04 CT Abd/Pelvis - IV Contrast Only In Process Unspecified. EDMS 18:40 Skyler Wick MD is Hospitalizing Provider. [facility] 19:21 Report given to KAYLEIGH Dow. db 20:30 Inserted saline lock: 20 gauge in left forearm, using aseptic technique. aa9 21:17 No provider procedures requiring assistance completed. Patient admitted, IV remains in aa9 place. Administered Medications: 16:44 Drug: NS 0.9% 1000 ml Route: IV; Rate: 1 bolus; Site: right antecubital; db 17:35 Drug: ProTONIX (pantoprazole) 80 mg Route: IVP; Site: right antecubital; ld1 17:37 Drug: ProTONIX (pantoprazole) 8 mg/hr Route: IV; Rate: 25 ml/hr; Site: right ld1 antecubital; Medication: 21:18 VIS not applicable for this client. aa9 Outcome: 18:40 Decision to Hospitalize by Provider. luc 21:18 Admitted to ER Hold. Please see [facility] for further documentation. aa9 21:18 Condition: stable 21:18 Instructed on the need for admit. 07/30 14:52 Patient left the ED. aa5 Signatures: Dispatcher [employer] EDMS Joey Hall PA PA jmm Martinez, Amelia as Calderon, Audri, RN RN aa5 Nina Mccormick RN RN jl7 Betty Payton RN RN ld1 Karma Morgan RN RN jh5 Clary Blankenship RN RN aa9 Lis Segal RN RN db
[2022-07-29 19:11] LABS: SARS-CoV-2 Antigen Rapid Res Negative (Negative)
[2022-07-29] MEDS ORDERED: NA CHLORIDE 0.9% 500 ML ONE (19:13)
--- NOTE | 2022-07-29 19:26 | P.HP ---
Certification for Inpatient Patient admitted to: Inpatient With expected LOS: >2 Midnights Patient will require the following post-hospital care: None Practitioner: I am a practitioner with admitting privileges, knowledge of patient current condition, hospital course, and medical plan of care. Services: Services provided to patient in accordance with Admission requirements found in Title 42 Section 412.3 of the Code of Federal Regulations <Leonel Estes Dory Cheatham - Last Filed: 07/29/22 19:22> Patient History Date of Service: 07/29/22 Reason for admission: GI bleed History of Present Illness: 66-year-old female with history of GERD, anxiety, hyperlipidemia, chronic pain presents to the emergency department for weakness, syncope, melena, coffee- ground emesis. She reports for the last 1 month she has had dark stools, weakness, dyspnea on exertion and multiple near syncopal/syncopal episodes. She takes daily Protonix at home has never had an EGD or colonoscopy before. Her labs showed a hemoglobin of 6.2, CT abdomen and pelvis were negative for any acute findings, CT PE protocol also negative for acute findings. Patient was given chance of PRBC, on Protonix drip in ED. Will admit for further evaluation and management of upper GI bleed, acute blood loss anemia. - Past Medical/Surgical History -: GERD -: Hyperlipidemia -: Anxiety/chronic pain -: Right lower extremity, left clavicle -: Cervical fusion x2 -: Breast augmentation -: x2 Psychosocial/ Personal History: Patient lives at home with significant other - Family History Family History: Reviewed- Non-Contributory - Social History Smoking Status: Former smoker Alcohol use: No CD- Drugs: No Caffeine use: Yes Place of Residence: Home <Leonel Estes - Last Filed: 07/29/22 19:22> Date of Service: 07/30/22 <Skyler Wick - Last Filed: 07/30/22 18:57> Review of Systems 10-point ROS is otherwise unremarkable General: Weakness Respiratory: Shortness of Breath, SOB with Excertion Cardiovascular: Light Headedness Gastrointestinal: Melena, Hematochezia <Leonel Estes - Last Filed: 07/29/22 19:22> Physical Examination - Physical Exam General: Alert, In no apparent distress, Oriented x3 HEENT: Atraumatic, PERRLA, Mucous membr. moist/pink, EOMI, Sclerae nonicteric Neck: Supple, 2+ carotid pulse no bruit, No LAD, Without JVD or thyroid abnormality Respiratory: Clear to auscultation bilaterally, Normal air movement Cardiovascular: No edema, Regular rate/rhythm, Normal S1 S2 Capillary refill: <2 Seconds Gastrointestinal: Normal bowel sounds, No tenderness Musculoskeletal: No tenderness Integumentary: No rashes Neurological: Normal speech, Normal strength at 5/5 x4 extr, Normal tone, Normal affect - Studies Laboratory Data (last 24 hrs) 07/29/22 16:41: PT 11.7, INR 1.06 07/29/22 16:41: Sodium 142, Potassium 4.0, BUN 22 H, Creatinine 0.70, Glucose 117 H, Total Bilirubin 0.3, AST 18, ALT 22, Alkaline Phosphatase 49, Lipase 147 07/29/22 16:41: WBC 7.30, Hgb 6.2 L*, Hct 20.0 L*, Plt Count 459 H <Leonel Estes - Last Filed: 07/29/22 19:22> - Studies Laboratory Data (last 24 hrs) 07/29/22 16:41: WBC 7.30, Hgb 6.2 L*, Hct 20.0 L*, Plt Count 459 H <Skyler Wick - Last Filed: 07/30/22 18:57> Assessment and Plan - Plan Assessment: Upper GI bleed/Melena Acute blood loss anemia Hyperlipidemia Chronic pain Insomnia Plan: Upper GI bleed/Melena n.p.o., IV PPI, GI consult. Patient takes protonix daily at home, has never had EGD/Colonoscopy. Acute blood loss anemia 2 unit PRBC to be transfused now, repeat H&H 2 hours posttransfusion. Hyperlipidemia hold oral medications at this time, restart when appropriate. Chronic pain hold oral medications. Insomnia continue home medication when appropriate. DVT PPX:SCD Code status:Full Discharge Plan: Home Plan to discharge in: 48 Hours - Advance Directives Does patient have a Living Will: No Does patient have a Durable POA for Healthcare: No - Code Status/Comfort Care Code Status Assessed: Yes (Full code) Critical Care: No Time Spent Managing Pts Care (In Minutes): 55 <Leonel Estes - Last Filed: 07/29/22 19:22> Physician Review: Patient Assessed, Agree with Above Assessment and Plan <Skyler Wick - Last Filed: 07/30/22 18:57>
[2022-07-29] MEDS: PANTOPRAZOLE INJ 80 MG in NA CHLORIDE 0.9% 250 ML IV SCH (21:37)
[2022-07-29] MEDS ORDERED: ONDANSETRON 4 MG/2 ML VIAL IV PRN (21:37)
[2022-07-29 21:39] LABS: Anisocytosis 1+; Blood Morphology Comment NOTED (NOT SEEN); Platelet Estimate INCR; Poikilocytosis 1+; White Blood Cell Scan OK (OK)
[2022-07-29] MEDS ORDERED: NA CHLORIDE 0.9% 100 ML ONE (22:58)
[2022-07-29] MEDS ORDERED: BACLOFEN 10 MG TAB ONE (23:41)
[2022-07-29] MEDS ORDERED: ZOLPIDEM TARTRATE 5 MG TABLET ONE (23:46)
[2022-07-29] MEDS ORDERED: BACLOFEN 10 MG TAB PO ONE (23:47)
[2022-07-29] MEDS ORDERED: ZOLPIDEM TARTRATE 10 MG TABLET PO ONE (23:47)
[2022-07-30] MEDS ORDERED: NA CHLORIDE 0.9% 500 ML ONE (02:05)
[2022-07-30] MEDS ORDERED: NA CHLORIDE 0.9% 500 ML IV ONE (02:05)
[2022-07-30] MEDS ORDERED: Ringers Lactate 500 ML IV ONE (02:47)
[2022-07-30] MEDS ORDERED: Ringers Lactate 1,000 ML IV ONE ×4 (02:47→10:37)
[2022-07-30] MEDS: Ringers Lactate 1,000 ML IV SCH ×3 (03:00→23:12)
[2022-07-30 04:28] LABS: Absolute Lymphocytes (CBC) 1.2 K/uL (0.7-4.9); Lymphocytes % 21.6 % (15.3-44.8); MCV 85.2 fL (80-100); MPV 7.3 fL (7.6-11.3); RBC Red Blood Cell Count 2.29 M/uL (3.86-4.86)
[2022-07-30 04:32] LABS: Hematocrit 19.5 % (36.0-45.0)
[2022-07-30] MEDS ORDERED: PANTOPRAZOLE 40 MG INJ ONE (04:45)
[2022-07-30] MEDS ORDERED: NA CHLORIDE 0.9% 250 ML ONE ×2 (04:45→06:04)
[2022-07-30] MEDS: PANTOPRAZOLE INJ 80 MG in NA CHLORIDE 0.9% 250 ML IV SCH ×3 (04:47→16:00)
[2022-07-30 04:52] LABS: Potassium 3.6 mmol/L (3.5-5.1)
[2022-07-30] MEDS ORDERED: NA CHLORIDE 0.9% 250 ML IV SCH (05:00)
[2022-07-30] MEDS ORDERED: MORPHINE 2 MG/ML SYR ONE (10:06)
[2022-07-30] MEDS: MORPHINE 2 MG/ML SYR IV PRN ×3 (10:09→23:15)
--- NOTE | 2022-07-30 16:56 | EKG ---
Test Date: 2022-07-29 Test Time: 16:51:38 Tin Flopper: GODWIN MEASUREMENT RESULTS: Intervals: Rate: 73 MA: 168 QRSD: 84 QT: 382 QTc: 420 [place]: P: 59 MA: 168 QRS: 60 T: 53 INTERPRETIVE STATEMENTS: Normal sinus rhythm with sinus arrhythmia Normal ECG No previous ECG available for comparison Electronically Signed On 07-30-22 16:54:17 MOISTURE MACHINE TENDER by Saqib Hernandez
--- NOTE | 2022-07-30 19:03 | P.PN ---
Subjective Date of Service: 07/30/22 Chief Complaint: GI bleed No acute events overnight. She reports that she takes naproxen 4-5 days a week. She has had melena as well as coffee-ground emesis. She denies any diarrhea. Review of Systems 10-point ROS is otherwise unremarkable Gastrointestinal: Melena, Other (hematemesis) Physical Examination - Vital Signs Temperature: 97.8 F Blood Pressure: 89/54 Pulse: 66 Respirations: 15 Pulse Ox (%): 97 - Physical Exam General: Alert, In no apparent distress, Oriented x3 HEENT: Atraumatic, Mucous membr. moist/pink, EOMI, Sclerae nonicteric Neck: JVD not distended Respiratory: Clear to auscultation bilaterally, Normal air movement Cardiovascular: No edema, Regular rate/rhythm, Normal S1 S2, No gallops, No rubs, No murmurs Gastrointestinal: Normal bowel sounds, Soft and benign, Non-distended, No tenderness, No rebound, No guarding Musculoskeletal: No clubbing Integumentary: No rashes Neurological: Normal speech, Normal affect - Studies Laboratory Data (last 24 hrs) 07/29/22 16:41: WBC 7.30, Hgb 6.2 L*, Hct 20.0 L*, Plt Count 459 H Assessment And Plan - Plan # Acute Blood Loss Anemia suspect due to Acute Upper Gastrointestinal Bleed Based on history, it appears that she is most likely having an upper gastrointestinal tract bleed. Differential diagnoses include, but are not limited to, NSAID-induced peptic ulcer disease, arteriovenous malformations, Madi lesions, Dieulafoy's lesions, gastritis/esophagitis, and malignancy. - Consulted Gastroenterology and spoke with Dr. Vasques - recommendations lena reciated - Plan for EGD today - Type & Screen = O-negative - q6hr H&H - Transfuse for Hgb < 7.0 -S/P 2 units pRBCs: Hgb 6.2 -> 6.3 - Additional 2 units pRBCs ordered - 2 large bore IVs - Continue pantoprazole drip - IV fluids with Lactated Ringers' at 100 mL/hr - NPO - Counseled on NSAID cessation # Chronic Pain Syndrome # Dyslipidemia # Insomnia - Hold PO meds pending EGD Skyler Wick M.D.
[2022-07-30 21:48] LABS: Hematocrit 27.1 % (36.0-45.0)
[2022-07-31] MEDS: PANTOPRAZOLE INJ 80 MG in NA CHLORIDE 0.9% 250 ML IV SCH ×3 (01:27→19:59)
[2022-07-31 05:09] LABS: Absolute Lymphocytes (CBC) 1.7 K/uL (0.7-4.9); Hematocrit 28.4 % (36.0-45.0); MCV 86.5 fL (80-100); RBC Red Blood Cell Count 3.28 M/uL (3.86-4.86)
[2022-07-31] MEDS ORDERED: Ringers Lactate 1,000 ML IV ONE (08:56)
[2022-07-31] MEDS ORDERED: LIDOCAINE 1% MPF 5 ML VIAL ONE (09:30)
[2022-07-31] MEDS ORDERED: propofoL 200 MG/20 ML VIAL IV ONE (09:30)
[2022-07-31] MEDS ORDERED: EPINEPHRINE/PF 1 MG/ML AMP ONE (09:35)
--- NOTE | 2022-07-31 10:08 | ENDO RPT ---
[address], [address] EGD PROCEDURE REPORT EXAM DATE: 07/31/2022 PATIENT NAME: Taylor Zaragoza MR#: [id number] BIRTHDATE: 1955 ATTENDING: Jace Vasques Dr STATUS: inpatient - [facility] DIRECTOR OF SALES: Chiquita Silvestre RN and Sujey Crawford INDICATIONS: The patient is a 66 yr old Female here for an EGD due to upper G.I. bleeding, hematemesis / coffee-ground emesis, melenic bleeding, anemia, hgb 6.2, abdominal pain, nausea and vomiting, and GERD PROCEDURE PERFORMED: EGD with biopsy MEDICATIONS: Per Anesthesia. TOPICAL ANESTHETIC: none CONSENT: The patient understands the risks and benefits of the procedure and understands that these risks include, but are not limited to: sedation, allergic reaction, infection, perforation and/or bleeding. Alternative means of evaluation and treatment include, among others: physical exam, x-rays, and/or surgical intervention. The patient elects to proceed with this endoscopic procedure. DESCRIPTION OF PROCEDURE: During intra-op preparation period all mechanical medical equipment was checked for proper function. Hand hygiene and appropriate measures for infection prevention was taken. Procedure, possible complications, and alternatives including but not limited to the possibility of bleeding, perforation, tear, infection, sepsis, need for surgery, need for blood transfusion, and anesthesia related complications were explained to the patient. After the risks, benefits and alternatives of the procedure were thoroughly explained, Informed consent was verified, confirmed and timeout was successfully executed by the treatment team. The patient was placed in the left lateral position. The patient was anesthetized with topical anesthesia. Through the anesthetized oropharyngeal area, the scope was passed without any difficulty. The EG-[id number] ([id number]) endoscope was introduced through the mouth and advanced to the third portion of the duodenum. Retroflexed views revealed a large hiatal hernia. The gastroscope was then slowly withdrawn and removed. A large hiatal hernia was found. Multiple (3) long linear 3-5 cm X 0.6 cm erosions (Madi's erosions) were found in the body of the stomach. Multiple (2) ulcerations with specks of fresh heme were found in the body of the stomach at the tips (proximal aspect) of the Madi's erosions. Mild gastritis was found in the antrum. Multiple biopsies were obtained and sent to pathology. ADVERSE EVENTS: There were no complications. cm from gums) 2. Multiple (3) long linear 3-5 cm X 0.6 cm erosions (Madi's erosions) in the body of the stomach, alonog edge of hernia 3. Multiple (2) ulcerations with specks of fresh heme in the body of the stomach at the tips (proximal aspect) of the Madi's erosions 4. Mild gastritis in the antrum, s/p biopsies RECOMMENDATIONS: 1. await biopsy results 2. acid suppression therapy REPEAT EXAM: Jace Vasques Dr eSigned: Jace Vasques Dr 07/31/2022 10:08 AM cc: CPT CODES: ICD9 CODES: PATIENT NAME: Taylor Zaragoza MR#: [id number]
[2022-07-31] MEDS: Ringers Lactate 1,000 ML IV SCH (17:27)
[2022-07-31] MEDS: DULOXETINE 30 MG CAP PO SCH (19:57)
--- NOTE | 2022-07-31 20:03 | P.PN ---
Subjective Date of Service: 07/31/22 Chief Complaint: GI bleed No acute events overnight. She was seen in PACU this morning prior to her esophagogastroduodenoscopy. She reports 1 bloody bowel movement overnight. She denies any nausea, vomiting, or diarrhea. Review of Systems 10-point ROS is otherwise unremarkable Gastrointestinal: Hematochezia Physical Examination - Vital Signs Temperature: 97.6 F Blood Pressure: 112/45 Pulse: 72 Respirations: 15 Pulse Ox (%): 93 Assessment And Plan - Plan - Physical Exam General: Alert, In no apparent distress, Oriented x3 HEENT: Atraumatic, EOMI, Sclerae nonicteric Neck: JVD not distended Respiratory: Clear to auscultation bilaterally, Normal air movement Cardiovascular: No edema, Regular rate/rhythm, No gallops, No rubs, No murmurs Gastrointestinal: Normal bowel sounds, Soft and benign, Non-distended, No tenderness, No rebound, No guarding Musculoskeletal: No clubbing Integumentary: No rashes Neurological: Normal speech, Normal affect # Acute Blood Loss Anemia suspect due to Acute Upper Gastrointestinal Bleed Based on history, it appears that she is most likely having an upper gastrointestinal tract bleed. Differential diagnoses include, but are not limite d to, NSAID-induced peptic ulcer disease, arteriovenous malformations, Madi lesions, Dieulafoy's lesions, gastritis/esophagitis, and malignancy. - Consulted Gastroenterology and spoke with Dr. Vasques - recommendations appreciated - Unable to obtain EGD yesterday - plan for EGD today - Type & Screen = O-negative - q6hr H&H - Transfuse for Hgb < 7.0 -S/P 4 units pRBCs thus far: Hgb 6.2 -> 6.3 -> 9.3 -> 8.7 -> 9.0 - 2 large bore IVs - Continue pantoprazole drip - IV fluids with Lactated Ringers' at 100 mL/hr - NPO - Counseled on NSAID cessation # Chronic Pain Syndrome # Dyslipidemia # Insomnia - Hold PO meds pending EGD Skyler Wick M.D.
[2022-07-31 22:08] LABS: Hematocrit 28.6 % (36.0-45.0)
[2022-07-31] MEDS ORDERED: BACLOFEN 10 MG TAB PO ONE (23:22)
[2022-08-01] MEDS: MORPHINE 2 MG/ML SYR IV PRN (00:33)
[2022-08-01] MEDS: Ringers Lactate 1,000 ML IV SCH ×3 (02:28→15:00)
[2022-08-01 05:19] LABS: Absolute Lymphocytes (CBC) 1.6 K/uL (0.7-4.9); Hematocrit 26.6 % (36.0-45.0); MCV 86.2 fL (80-100); MPV 7.7 fL (7.6-11.3); RBC Red Blood Cell Count 3.08 M/uL (3.86-4.86)
[2022-08-01 06:09] LABS: Potassium 3.8 mmol/L (3.5-5.1)
[2022-08-01] MEDS ORDERED: POTASSIUM 25 MEQ EFFERV TAB PO ONE (07:14)
[2022-08-01] MEDS: PANTOPRAZOLE INJ 80 MG in NA CHLORIDE 0.9% 250 ML IV SCH (08:02)
[2022-08-01] MEDS: DULOXETINE 30 MG CAP PO SCH (08:09)
[2022-08-01] MEDS: SUCRALFATE 1 GM TABLET PO SCH ×4 (08:09→20:54)
[2022-08-01 08:21] VITALS: O2SAT 97
[2022-08-01] MEDS ORDERED: ZOLPIDEM TARTRATE 10 MG TABLET PO PRN (10:29)
--- NOTE | 2022-08-01 10:33 | P.PN ---
Subjective Date of Service: 08/01/22 Chief Complaint: GI bleed No acute events overnight. Esophagogastroduodenoscopy was notable for Madi lesions. She reports no hematochezia since the procedure yesterday. She denies any nausea, vomiting, or diarrhea. Plan to downgrade out of ICU status this morning. Review of Systems 10-point ROS is otherwise unremarkable Gastrointestinal: Hematochezia (resolved) Physical Examination - Vital Signs Temperature: 96.8 F Blood Pressure: 135/68 Pulse: 66 Respirations: 20 Pulse Ox (%): 97 Assessment And Plan - Plan - Physical Exam General: Alert, In no apparent distress, Oriented x3 HEENT: Atraumatic, Sclerae nonicteric Neck: JVD not distended Respiratory: Clear to auscultation bilaterally, Normal air movement Cardiovascular: No edema, Regular rate/rhythm, No murmurs Gastrointestinal: Normal bowel sounds, Soft and benign, Non-distended, No tenderness, No rebound, No guarding Musculoskeletal: No clubbing Integumentary: No rashes Neurological: Normal speech, Normal affect # Acute Blood Loss Anemia suspect due to Acute Upper Gastrointestinal Bleed (Madi Lesions) - Consulted Gastroenterology and spoke with Dr. Vasques - recommendations appreciated - EGD on 07/31/2022 -> Madi lesions - Type & Screen = O-negative - q6hr H&H - Transfuse for Hgb < 7.0 -S/P 4 units pRBCs thus far: Hgb 6.2 -> 6.3 -> 9.3 -> 8.7 -> 9.0 -> 9.2 -> 8.6 - 2 large bore IVs - Continue pantoprazole drip - Started sucralfate and ferrous sulfate - IV fluids with Lactated Ringers' at 100 mL/hr - Full Liquids per GI - Counseled on NSAID cessation # Chronic Pain Syndrome - Continue home baclofen, duloxetine, pregabalin - Discontinue IV morphine # Dyslipidemia - Continue home simvastatin # Insomnia - Continue home zolpidem Skyler Wick M.D.
[2022-08-01] MEDS: FERROUS SULFATE 325 MG TAB PO SCH (11:00)
[2022-08-01 12:28] LABS: Hematocrit 27.1 % (36.0-45.0)
[2022-08-01 18:00] LABS: Hematocrit 27.5 % (36.0-45.0)
--- NOTE | 2022-08-01 18:39 | P.PN ---
Subjective Date of Service: 08/01/22 Chief Complaint: GI bleed, melena, coffee-ground emesis, anemia, hgb 6.2, large HH Subjective: Improving (No further GI bleeding noted by patient. She now reports wretching before UGI bleeding started. Hgb 6.2 to 8.9 and stable for 2 days.) Review of Systems 10-point ROS is otherwise unremarkable General: Weakness (Improved. ) Physical Examination - Vital Signs Temperature: 97.6 F Blood Pressure: 111/61 Pulse: 67 Respirations: 16 Pulse Ox (%): 97 - Physical Exam General: Alert, In no apparent distress, Cooperative HEENT: Atraumatic, Normocephalic, PERRLA, EOMI Neck: Supple Respiratory: Normal air movement Cardiovascular: Normal pulses Gastrointestinal: Soft and benign, No tenderness, No rebound, No guarding Neurological: Normal speech, Normal strength at 5/5 x4 extr Assessment And Plan - Current Problems (Diagnosis) (1) Upper GI bleeding Current Visit: Yes Status: Acute (2) Coffee ground emesis Current Visit: Yes Status: Acute (3) Melena Current Visit: Yes Status: Acute (4) Anemia Current Visit: Yes Status: Acute (5) Large hiatal hernia Current Visit: Yes Status: Acute - Plan REC: 1) change Protonix to 40 mg po bid due to large HH with Madi's erosions / ulcers 2) advance diet 3) okay to discharge from a GI standpoint Physician Review: Patient Assessed, Agree with Above Assessment and Plan
[2022-08-01] MEDS: PANTOPRAZOLE 40MG TABLET PO SCH (20:55)
[2022-08-01] MEDS ORDERED: ATORVASTATIN 10 MG TAB PO SCH (21:00)
[2022-08-01] MEDS ORDERED: PREGABALIN 50 MG CAP PO SCH (21:00)
[2022-08-01] MEDS ORDERED: HOME MED 1 EA UNK (Simvastatin [Simvastatin] 20 MG Tablet) PO SCH (21:00)
[2022-08-01] MEDS ORDERED: BACLOFEN 10 MG TAB PO SCH (21:00)
[2022-08-02 01:04] LABS: Hematocrit 26.2 % (36.0-45.0)
[2022-08-02 04:25] VITALS: BMI 24.9
[2022-08-02 08:22] VITALS: BP 111/59; TEMP 97.8
[2022-08-02] MEDS: DULOXETINE 30 MG CAP PO SCH (08:25)
[2022-08-02] MEDS: FERROUS SULFATE 325 MG TAB PO SCH (08:25)
[2022-08-02] MEDS: SUCRALFATE 1 GM TABLET PO SCH (08:25)
[2022-08-02] MEDS: PANTOPRAZOLE 40MG TABLET PO SCH (08:25)
--- NOTE | 2022-08-02 08:57 | P.DS ---
Admission Date: 07/29/22 Discharge Date: 08/02/22 Disposition: ROUTINE DISCHARGE Discharge Condition: GOOD Reason for Admission: GI bleed, melena, coffee-ground emesis, anemia, hgb 6.2, large HH Consultations: 1. Gastroenterology Procedures: - 07/31/2022 - Esophagogastroduodenoscopy Hospital Course: DIAGNOSES: # Acute Blood Loss Anemia suspect due to Acute Upper Gastrointestinal Bleed (Madi Lesions) # Moderate Hiatal Hernia # Chronic Pain Syndrome # Dyslipidemia # Insomnia HOSPITAL COURSE: Ms. Taylor Zaragoza is a pleasant 66 year old female with a past medical history significant for chronic pain syndrome, dyslipidemia, and insomnia who was admitted to the [facility] on 07/29/2022 for melena and coffee-ground emesis. She was admitted to the Medicine service. Upon presentation, she was found to have a hemoglobin of 6.2, and she required a total of 4 units of pRBCs during her hospitalization. Gastroenterology was consulted and she was evaluated by Dr. Vasques. She underwent an esophagogastroduodenoscopy, which revealed, "there were no complications. 2. Multiple (3) long linear 3-5 cm x 0.6 cm erosions (Madi's erosions) in the body of the stomach, alonog edge of hernia 3. Multiple (2) ulcerations with specks of fresh heme in the body of the stomach at the tips (proximal aspect) of the Madi's erosions 4. Mild gastritis in the antrum, s/p biopsies." She tolerated the procedure well with stabilization of her hemoglobin levels. She has had no recurrent episodes of bleeding and Dr. Vasques has cleared her for discharge with outpatient follow-up. On 08/02/2022, she was seen on morning rounds and deemed medically stable for discharge. She was discharged with instructions to schedule follow-up appointments with her PCP (Dr. Branch) and with Gastroenterology (Dr. Vasques). She was advised that should her symptoms not respond to medical management, the next step would be an outpatient Thoracic Surgery evaluation for her hiatal hernia. She verbalized understanding and agreed to discuss this with her PCP. She was provided prescriptions for pantoprazole, sucralfate, and ferrous rosales lfate. She was given the opportunity to ask questions and reported no further questions. Furthermore, all questions were answered to the best of my ability. A copy of this discharge summary will be sent to the above providers to facilitate continuity of care. Today, I personally spent 25 minutes on her case, of which greater than 50% of the time was spent in patient education, counseling, and coordination of care as described above. - Physical Exam General: Alert, In no apparent distress, Oriented x3 HEENT: Atraumatic, Sclerae nonicteric Neck: JVD not distended Respiratory: Clear to auscultation bilaterally, Normal air movement Cardiovascular: No edema, Regular rate/rhythm, No murmurs Gastrointestinal: Normal bowel sounds, Soft and benign, Non-distended, No tenderness, No rebound, No guarding Musculoskeletal: No clubbing Integumentary: No rashes Neurological: Normal speech, Normal affect Vital Signs/Physical Exam: Temp Pulse Resp BP Pulse Ox 97.8 F 68 16 111/59 L 94 08/02/22 08:00 08/02/22 08:00 08/02/22 08:00 08/02/22 08:00 08/02/22 08:00 Laboratory Data at Discharge: WBC 5.30 K/uL (4.3-10.9) 08/01/22 04:54 Hgb 8.6 g/dL (12.0-15.0) L 08/02/22 00:46 Hct 26.2 % (36.0-45.0) L 08/02/22 00:46 Plt Count 291 K/uL (152-406) 08/01/22 04:54 PT 11.7 SECONDS (9.5-12.5) 07/29/22 16:41 INR 1.06 07/29/22 16:41 Sodium 144 mmol/L (136-145) 08/01/22 04:54 Potassium 3.8 mmol/L (3.5-5.1) 08/01/22 04:54 BUN 8 mg/dL (7-18) 08/01/22 04:54 Creatinine 0.74 mg/dL (0.55-1.02) 08/01/22 04:54 Glucose 102 mg/dL (74-106) 08/01/22 04:54 Total Bilirubin 0.3 mg/dL (0.2-1.0) 07/29/22 16:41 AST 18 U/L (15-37) 07/29/22 16:41 ALT 22 U/L (13-56) 07/29/22 16:41 Alkaline Phosphatase 49 U/L (45-117) 07/29/22 16:41 Lipase 147 U/L (73-393) 07/29/22 16:41 Home Medications: RX: Baclofen 20 mg PO BEDTIME 07/30/22 RX: Duloxetine HCl 60 mg PO DAILY 07/30/22 RX: Pregabalin [Lyrica] 100 mg PO BEDTIME 07/30/22 RX: Simvastatin 20 mg PO BEDTIME 07/30/22 RX: Zolpidem Tartrate [Ambien] 10 mg PO BEDTIME 07/30/22 RX: Ferrous Sulfate [Ferrous Sulfate*] 325 mg PO DAILY #30 tab 08/02/22 RX: Pantoprazole [Protonix Tab*] 40 mg PO BID #60 tab 08/02/22 RX: Sucralfate [Carafate] 10 ml PO PCHS #120 ml 08/02/22 New Medications: RX: Sucralfate [Carafate] 10 ml PO PCHS #120 ml RX: Ferrous Sulfate [Ferrous Sulfate*] 325 mg PO DAILY #30 tab RX: Pantoprazole [Protonix Tab*] 40 mg PO BID #60 tab Physician Discharge Instructions: 1. Please call and schedule a follow-up appointment with your PCP (Dr. Branch) in 3-5 days 2. Please call and schedule a follow-up appointment with Gastroenterology (Dr. Vasques) in 5-7 days Diet: Regular Activity: Ad theresa Followup: Antwon Branch MD [OUTSIDE PHYSICIAN] - Jace Vasques MD [ASSOCIATE-ACTIVE - CAN ADMIT] - Time spent managing pt's care (in minutes): 25
[2022-08-02] MEDS ORDERED: HOME MED 1 EA UNK (Duloxetine Hcl [Duloxetine Hcl] 60 MG Capsule.Dr) PO SCH (09:00)
== END 2022-08-02 10:45 | disposition home or self-care (01) | DRG 378 ==
LOC: ER 14:56 → ERHOLD 18:56 → 3RD-ICU 07-30 13:10 → 4TH 08-01 08:50
PROVIDERS: ADMIT Internal Medicine; ATTEND Internal Medicine
PROC: 30233N1 Transfusion of Nonautologous Red Blood Cells into Peripheral Vein, Percutaneous Approach (ICD-10-PCS; 2022-07-29)
PROC: 0DB78ZX Excision of Stomach, Pylorus, Via Natural or Artificial Opening Endoscopic, Diagnostic (ICD-10-PCS; principal; 2022-07-31 09:15)
DX: K25.4 Chronic or unspecified gastric ulcer with hemorrhage (principal); D62 Acute posthemorrhagic anemia; K21.9 Gastro-esophageal reflux disease without esophagitis; E78.5 Hyperlipidemia, unspecified; D64.9 Anemia, unspecified; G47.00 Insomnia, unspecified; K29.70 Gastritis, unspecified, without bleeding; G89.4 Chronic pain syndrome; K44.9 Diaphragmatic hernia without obstruction or gangrene; Z88.8 Allergy status to other drugs, medicaments and biological substances; Z87.891 Personal history of nicotine dependence; Z79.899 Other long term (current) drug therapy; Z20.822 Contact with and (suspected) exposure to COVID-19
CPT/HCPCS: 36415; 71275; 74177; 80048; 80053; 83690; 84484; 85014; 85018; 85025; 85610; 86850; 86900; 86901; 87811; 88305; 88312; 93005; 96374; 99285; C9113; J0171; J2001; J2270; J2405; J2704; J7030; J7040; J7050; J7120; P9016; Q9967